=== PATIENT | female | born 1930 | race Caucasian/White ===

== ENCOUNTER 2018-03-28 16:34 | Emergency (ER) | payer MEDICARE, OTHER ==
[~2018-03-28] VITALS: Ht 160 cm; Wt 97.5 kg
[2018-03-28 16:34] VITALS: BP 127/83
[2018-03-28] MEDS ORDERED: IBUPROFEN 400 MG TABLET ONE (16:56)
[2018-03-28] MEDS ORDERED: TDAP [DIPH/PERTUSSIS/TET] 0.5 ML VIAL IM ONE ×2 (16:56→17:00)
[2018-03-28] MEDS ORDERED: IBUPROFEN 400 MG TABLET PO ONE (17:00)
== END 2018-03-28 17:06 | disposition home or self-care (01) ==
LOC: ER 16:40
DX: S81.801A Unspecified open wound, right lower leg, initial encounter (principal); E11.9 Type 2 diabetes mellitus without complications; W22.8XXA Striking against or struck by other objects, initial encounter; Y93.89 Activity, other specified; Y92.89 Other specified places as the place of occurrence of the external cause; Y99.8 Other external cause status
CPT/HCPCS: 90471; 90715; 99283; A4606; A6403; Z7610

== ENCOUNTER 2018-03-31 11:24 | Emergency (ER) | payer MEDICARE, OTHER ==
[~2018-03-31] VITALS: Ht 167.6 cm; Wt 83.0 kg
--- NOTE | 2018-03-31 12:17 | NUR ---
Patient discharged to home in stable condition. Written and verbal after care instructions given. Patient verbalizes understanding of instruction.
[2018-03-31 12:27] VITALS: BP 130/60
== END 2018-03-31 12:27 | disposition home or self-care (01) ==
LOC: ER 11:31
DX: Z48.00 Encounter for change or removal of nonsurgical wound dressing (principal); E11.9 Type 2 diabetes mellitus without complications
CPT/HCPCS: 99281; A4606; Z7502; Z7610

== ENCOUNTER 2018-10-08 10:31 | Emergency (ER) | payer MEDICARE, OTHER ==
[~2018-10-08] VITALS: Ht 152.4 cm; Wt 84.4 kg
[2018-10-08 10:48] VITALS: BP 136/74
--- NOTE | 2018-10-08 10:48 | NUR ---
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 PT STATES NOT UTD W/ TETANUS SHOT. TO ER BED 1, HOOKED TO MONITOR, AWAITING MD KHAN
--- NOTE | 2018-10-08 10:54 | NUR ---
DR SEN AT BEDSIDE
--- NOTE | 2018-10-08 10:56 | NUR ---
VERBAL ORDER RECEIVED FROM DR SEN FOR TDAP
[2018-10-08] MEDS ORDERED: TDAP [DIPH/PERTUSSIS/TET] 0.5 ML VIAL IM ONE ×2 (10:57→11:30)
--- NOTE | 2018-10-08 11:00 | NUR ---
TDAP IM AT L DELTOID LOT: [id number] [employer] EXP: 08/13/2019 CONSENT: YES PT TOLERATED WELL, NO ADVERSE REACTION
--- NOTE | 2018-10-08 11:20 | NUR ---
Patient discharged to home in stable condition. Written and verbal after care instructions given. Patient verbalizes understanding of instruction.
== END 2018-10-08 11:28 | disposition home or self-care (01) ==
LOC: ER 10:43
DX: S51.812A Laceration without foreign body of left forearm, initial encounter (principal); E11.9 Type 2 diabetes mellitus without complications; W22.8XXA Striking against or struck by other objects, initial encounter; Y93.89 Activity, other specified; Y92.89 Other specified places as the place of occurrence of the external cause; Y99.8 Other external cause status
CPT/HCPCS: 90715

== ENCOUNTER 2018-11-04 14:29 | Emergency (ER) | payer MEDICARE, OTHER ==
[~2018-11-04] VITALS: Ht 162.6 cm; Wt 86.2 kg
[2018-11-04 16:20] VITALS: BP 133/72
--- NOTE | 2018-11-04 17:04 | NUR ---
WOUND CLEANSED/DRESSED,TOLERATED WELL
== END 2018-11-04 17:06 | disposition home or self-care (01) ==
LOC: ER 14:31
DX: L03.116 Cellulitis of left lower limb (principal); E11.9 Type 2 diabetes mellitus without complications

== ENCOUNTER 2018-11-05 13:38 | Emergency (ER) | payer MEDICARE, OTHER ==
[~2018-11-05] VITALS: Ht 147.3 cm; Wt 81.6 kg
[2018-11-05 13:38] VITALS: BP 132/60
[2018-11-05] MEDS ORDERED: TDAP [DIPH/PERTUSSIS/TET] 0.5 ML VIAL IM ONE ×2 (14:38→15:00)
== END 2018-11-05 15:09 | disposition home or self-care (01) ==
LOC: ER 13:39
DX: S51.811A Laceration without foreign body of right forearm, initial encounter (principal); E11.9 Type 2 diabetes mellitus without complications; W01.0XXA Fall on same level from slipping, tripping and stumbling without subsequent striking against object, initial encounter; Y93.89 Activity, other specified; Y92.89 Other specified places as the place of occurrence of the external cause; Y99.8 Other external cause status
CPT/HCPCS: 90471; 90715; 99283; A6402